=== PATIENT | female | born 1960 | race Caucasian/White ===

== ENCOUNTER 2022-01-14 09:38 | Outpatient (CLI) | payer OTHER, SELFPAY ==
--- NOTE | 2022-01-14 09:45 | CRLHL7_ITS ---
For Patients: As a result of the Century Cures Act, medical imaging exams and procedure reports are released immediately into your electronic medical record. You may view this report before your referring provider. If you have questions, please contact your health care provider. INDICATION: FOLLOW UP THYROID NODULE, S/P RIGHT THYROIDECTOMY COMPARISON: 06/07/2019 TECHNIQUE: Mora scale and color Doppler images were acquired of the thyroid gland. FINDINGS: Right thyroidectomy. Left thyroid lobe diffusely heterogeneous, as before. The left thyroid lobe measures 4.4 x 1.2 x 1.4 cm in size. Stable size and morphology of the nodule within the lower pole of the left thyroid lobe with circumscribed margins and slightly hypoechoic internal echotexture and increased through transmission measuring 1.9 x 1.3 x 1.2 cm, previously measuring 2.1 x 1.5 x 1.3 cm. The color Doppler images demonstrate normal vascularity. There is no evidence of cervical lymphadenopathy or parathyroid mass. IMPRESSION: Similar morphology and size of the nodule within the lower pole of the left thyroid lobe measuring 1.9 cm. Dictated by Joe Escobedo MD @ 01/14/2022 10:17:34 AM (Electronically Signed)
== END 2022-01-14 09:39 | disposition home or self-care (01) ==
LOC: US 09:40
PROVIDERS: PCP Family Medicine; Visit Provider Internal Medicine Hematology & Oncology
DX: E04.1 Nontoxic single thyroid nodule (principal)
CPT/HCPCS: 76536

== ENCOUNTER 2022-01-31 08:58 | Outpatient (CLI) | payer OTHER, SELFPAY ==
[2022-01-31 22:12] LABS: Chloride* 99 mmol/L (96-114)
[2022-01-31 22:13] LABS: Albumin* 4.7 g/dL (3.3-5.0); Sodium* 135 mmol/L (135-149)
[2022-01-31 22:14] LABS: Potassium* 4.4 mmol/L (3.6-5.1)
[2022-01-31 22:16] LABS: Alkaline Phosphatase* 83 U/L (40-150); Aspartate Amino Transferase* 31 U/L (12-35); Bilirubin Total* 0.9 mg/dL (0.1-1.5); Blood Urea Nitrogen* 13 mg/dL (7-30); Carbon Dioxide* 29 mmol/L (20-32); Cholesterol* 213 mg/dL (90-199); Creatinine* 0.7 mg/dL (0.5-1.5); Estimated Glomerular Filt Rate 98 ml/min; Glucose* 86 mg/dL (60-115); Total Protein* 7.3 g/dL (6.0-8.3)
[2022-01-31 22:17] LABS: Alanine Aminotransferase* 20 U/L (4-35); Calcium* 9.9 mg/dL (8.4-10.6); HDL Cholesterol* 98 mg/dL (>=50); LDL Cholesterol Calculated 104 mg/dL (<100); Triglycerides* 54 mg/dL (40-149)
[2022-01-31 23:59] LABS: Vitamin D 25 Hydroxy* 53 ng/mL (30-80)
== END 2022-01-31 08:59 | disposition home or self-care (01) ==
PROVIDERS: PCP Family Medicine; Visit Provider Family Medicine
DX: E03.9 Hypothyroidism, unspecified (principal); E55.9 Vitamin D deficiency, unspecified; Z13.6 Encounter for screening for cardiovascular disorders
CPT/HCPCS: 80053; 80061; 82306; 84443

== ENCOUNTER 2022-03-14 12:31 | Outpatient (CLI) | payer OTHER, SELFPAY ==
--- NOTE | 2022-03-14 14:52 | W.ANESCHARGE ---
Anesthesia Charges Start Date/Time Anesthesia Start Date: 03/14/22 Anesthesia Start Time: 14:05 Stop Date/Time Anesthesia Stop Date: 03/14/22 Anesthesia Stop Time: 14:47 Summary Emergency: No
--- NOTE | 2022-03-14 15:01 | W.ANESCHARGE ---
Anesthesia Charges Start Date/Time Anesthesia Start Date: 03/14/22 Anesthesia Start Time: 14:05 Stop Date/Time Anesthesia Stop Date: 03/14/22 Anesthesia Stop Time: 14:47 Summary Emergency: No
== END 2022-03-14 12:32 | disposition home or self-care (01) ==
LOC: OP CLINIC 12:32
PROVIDERS: PCP Family Medicine; Visit Provider Surgery
DX: Z12.11 Encounter for screening for malignant neoplasm of colon (principal); K63.5 Polyp of colon; Z86.010 Personal history of colon polyps
CPT/HCPCS: 00811; 45380; 45385; 88305; J2704

== ENCOUNTER 2022-04-01 07:34 | Day surgery (SDC) | payer OTHER, SELFPAY ==
[2022-04-01] VITALS (15 sets, daily range): BP systolic 96–153; BP diastolic 63–104; PULSE 62–84; RESP 14–16; TEMP 36.2–36.4; O2SAT 96–100; BMI 21.4
--- NOTE | 2022-04-01 07:46 | SUR.PREOP ---
HOME COVID TEST NEGATIVE ON 03/31/22 @ 1535.
[2022-04-01] MEDS: LACTATED RINGERS 1000 ML 1,000 ML 100 ML IV (08:00)
[2022-04-01] MEDS: SCOPOLAMINE 1 MG/3 DAY PATCH 1 PATCH TRANSDERMA (08:05)
[2022-04-01] MEDS: SODIUM CHLORIDE 0.9 % (FLUSH) 10 ML SYRINGE IVF (08:17)
[2022-04-01] MEDS: ERTAPENEM 1 GM inj IVPB (08:45)
--- NOTE | 2022-04-01 09:09 | W.ANESCHARGE ---
Anesthesia Charges Start Date/Time Anesthesia Start Date: 04/01/22 Anesthesia Start Time: 08:33 Stop Date/Time Anesthesia Stop Date: 04/01/22 Anesthesia Stop Time: 10:48 Summary Emergency: No
--- NOTE | 2022-04-01 09:55 | SUR.OPER ---
Prior to prepping skin, red rash was found bilateral obliques and under breasts. FISH ICER and surgeon were notified of rash.
--- NOTE | 2022-04-01 10:39 | P.GSOP_ITS ---
Operative Note Date of procedure: 04/01/22 Type of Procedure: 1. Laparoscopic appendectomy and partial cecectomy. Procedure Description: After discussing the risks and benefits of the procedure, the patient signed informed consent.? The operative site was marked and the patient was brought to the operating room and placed on the operating table in supine position.? Care was taken to pad the patient's pressure points.?? The patient was then intubated by anesthesia.?? The operative site was then prepped and draped in the usual sterile fashion.? A time-out was then performed. A 5-mm laparoscopy port was placed in the left upper quadrant guided by a 5-mm laparoscope placed into a translucent trochar. Passage through the layers of the abdominal wall was visualized with the laparoscope. A pneumoperitoneum was established. A 30-degree 5-mm laparoscope was advanced into the abdomen. The abdomen was briefly surveyed, and there was no evidence of adhesions. A 12-mm port and a 5-mm port were placed in the left low quadrant and suprapubically, re spectively, under direct visualization by laparoscope. Left upper quadrant entrance port was then examined intraabdominally by placing the camera through the left lower quadrant port and no intraabdominal injury was seen. The patient was placed in Trendelenburg position, allowing the abdominal contents to shift cephalad. The small bowel was moved toward the midline in the abdomen and this allowed for identification of the appendix. The appendix was dissected from the lateral peritoneum using Harmonic scalpel. The cecum was grasped and retracted medially. The cecum was also mobilized off the lateral abdominal wall with the Harmonic scalpel. The terminal ileum was identified and entrance into the cecum was clearly visualized. This was away from the appendiceal entrance. Appendiceal mesentery was skeletonized with Harmonic scalpel. The appendiceal artery was clipped with 2 5 mm clips on the patient's side and divided with Harmonic scalpel on the specimen side. When the cecum was floppy and mobile, the appendix and the cuff of cecum was stapled with 2 vascular load staplers. When the first staple load was fired, the staple line was cut at the proximal stapler prior to the Stapler knife cutting in between the staple line. This was unusual. The staple line was examined and the ernesto were intact. The staple line was also intact. The second stapler was then fired without any difficulties. A small dog ear was noted at the end of the second staple line. even though the ernesto were intact, I elected to clip this with two 5 mm Endoclips. The appendix and cuff of the cecum were then placed into an Endo-Catch bag and removed through the 12 mm port. This was sent to pathology for gross examination. Pathologist was able to identify the polyp and there was a rim of normal tissue around the polyp. No bleeding was seen at surgical site. The staple line was examined and was intact. I elected to over-sew the first part of the staple line where there was premature cut between the staple line as described above. This was done with 3-0 silk Lembert sutures with extracorporeal knot tying. The 12-mm port was withdrawn and the fascial defect was closed with 0-0 Vicryl stitch using Yves Lynne needle under direct visualization. The 5-mm port was removed under direct visualization. The left upper quadrant port was used to evacuate the pneumoperitoneum and then withdrawn. The skin incisions were closed with 4-0 monocryl. Steri-Strips were applied over the incisions. All counts were correct at the end of the case. The patient tolerated this procedure well and was transferred to PACU in stable condition.? Findings: The appendix and a cuff of cecum was excised with ernesto. Unusual cutting of the first staple load was noted. The staple line was intact but this was oversewn with silk sutures Laparoscopically. Pathology was able to identify the appendiceal orifice polyp and a rim of normal tissue around the polyp. Anesthesia: GETA Surgeon: Herminio Hawkins MD Estimated blood loss (mL): 5 Condition: stable Disposition: PACU
[2022-04-01] MEDS: BUPIVACAINE 0.25% 30 ML INJECTION (10:45)
--- NOTE | 2022-04-01 11:16 | W.ANESCHARGE ---
Anesthesia Charges Start Date/Time Anesthesia Start Date: 04/01/22 Anesthesia Start Time: 08:33 Stop Date/Time Anesthesia Stop Date: 04/01/22 Anesthesia Stop Time: 10:48 Summary Emergency: No
[2022-04-01] MEDS: HYDROCODONE-ACETAMIN 5-325 MG 1 TAB PO ×2 (11:44→12:49)
== END 2022-04-01 13:05 | disposition home or self-care (01) ==
PROVIDERS: PCP Family Medicine; Visit Provider Surgery
PROC: 0DTH4ZZ Resection of Cecum, Percutaneous Endoscopic Approach (ICD-10-PCS; CPT 44204; principal; 2022-04-01 08:45)
DX: D12.1 Benign neoplasm of appendix (principal); D12.2 Benign neoplasm of ascending colon
CPT/HCPCS: 44970; 44238; 00840; 88304; 88307; A9270; J1100; J1335; J2250; J2405; J2704; J3010; J3490; J7120

== ENCOUNTER 2022-06-21 12:46 | Outpatient (CLI) | payer BC, SELFPAY ==
--- NOTE | 2022-06-21 13:00 | CRLHL7_ITS ---
For Patients: As a result of the Century Cures Act, medical imaging exams and procedure reports are released immediately into your electronic medical record. You may view this report before your referring provider. If you have questions, please contact your health care provider. DXA BONE MINERAL DENSITY STUDY Current height (in): 61.0. Weight (lb): 140.0. Menopause age: Not provided. Ethnicity: White. Reason for exam: Osteopenia. 1. Have you had a previous hip or vertebral fracture? No. 2. Have you had any fractures during your adult life which did not result from significant trauma (e.g., auto accident)? Yes. 3. Did either of your parents have a hip fracture? No. 4. Do you smoke? No. 5. Have you ever taken Glucocorticoids? No. 6. Do you have rheumatoid arthritis? No. 7. Do you have secondary osteoporosis? No. 8. Do you drink 3 or more alcoholic drinks per day? Yes. 9. Are you being treated for osteoporosis? No. 10. Have you ever taken any of the following medications: Actonel, Evista, Fosamax, Miacalcin, Reclast, Boniva, Forteo, HRT (i.e. estrogen/hormone therapy), Protelos, Prolia, Vitamin D, Calcium, other ??? please specify. ANSWER: Yes, calcium, vitamin D. 11. Do you have any of the following medical conditions: Anorexia or bulimia, asthma or emphysema, end stage renal disease, hyperparathyroidism, any seizure disorders, cancer, inflammatory bowel diseases, hysterectomy, other ??? please specify. ANSWER: Yes, asthma or emphysema. 12. What was your maximum height (inches)? 66.5. 13. Do you perform weight bearing exercise regularly? No. 14. Do you regularly consume dairy products? No. 15. Do you drink caffeinated beverages? No. 16. At what age did your period start? 12. 17. Are you premenopausal? No. 18. How many full term pregnancies have you had? 2. 19. Have you ever missed your period for more than 6 months in a row (not including or menopause)? No. TECHNIQUE: Bone mineral density study was performed using the SmartSynch. FINDINGS: The results of the study expressed as bone mineral density (BMD) are as follows: Lumbar spine L1 to L4: BMD: 0.889 g/cm2. T-score: -1.4. Z-score: 0.2. Neck Left: BMD: 0.718 g/cm2. T-score: -1.2. Z-score: 0.2. Right: BMD: 0.676 g/cm2. T-score: -1.6. Z-score: -0.1. Total Left: BMD: 0.941 g/cm2. T-score: -0.0. Z-score: 1.1. Right: BMD: 0.823 g/cm2. T-score: -1.0. Z-score: 0.1. IMPRESSION: Osteopenia. *Comparison exams done prior to 09/2019 were performed on different unit, Six3. COMPARISON: Compared with scan of 01/10/2021, the bone mineral density has increased decreased by 0.3 percent at the spine and increased by 1.8 percent at the hip. Compared with scan of 06/18/2018, the bone mineral density has increased by 9.2 percent at the spine and increased by 7.4 percent at the hip. FRAX 10-year Fracture Risk Major Osteoporotic Fracture: 17 percent Hip Fracture: 2.2 percent Reported Risk Factors: [place] () Neck BMD = 0.676, BMI = 26.5 Coral Gonzalez M.D. Diagnostic/Breast Radiologist [email or web address] Transcribed: 2:56 pm DW/Dictated by: Coral Gonzalez MD @ 06/21/2022 1:51:00 PM (Electronically Signed)
== END 2022-06-21 12:47 | disposition home or self-care (01) ==
LOC: RAD 12:46
PROVIDERS: PCP Family Medicine; Visit Provider Internal Medicine Hematology & Oncology
DX: Z13.820 Encounter for screening for osteoporosis (principal); M85.89 Other specified disorders of bone density and structure, multiple sites
CPT/HCPCS: 77080

== ENCOUNTER 2023-02-12 11:27 | Outpatient (CLI) | payer BC, SELFPAY | END 2023-02-12 11:28 | disposition home or self-care (01) | LOC: NFLDREF 02-15 18:29 | PROVIDERS: PCP Family Medicine; Referring Provider Family Medicine; Visit Provider Family Medicine | DX: Z00.00 Encounter for general adult medical examination without abnormal findings (principal); M85.80 Other specified disorders of bone density and structure, unspecified site; E03.9 Hypothyroidism, unspecified; E55.9 Vitamin D deficiency, unspecified; D12.2 Benign neoplasm of ascending colon; C50.919 Malignant neoplasm of unspecified site of unspecified female breast; Z13.6 Encounter for screening for cardiovascular disorders; Z13.220 Encounter for screening for lipoid disorders; Z15.02 Genetic susceptibility to malignant neoplasm of ovary | CPT/HCPCS: 80053; 80061; 82306; 84443 ==

== ENCOUNTER 2023-03-18 07:07 | Outpatient (CLI) | payer BC, SELFPAY ==
--- OUTSIDE RECORDS SUMMARY | 2023-03-18 07:10 | XMS_ITS | Continuity of Care Document ---
Author Name Unknown Organization [facility] Address [address] [place] [address] Phone Care Team Providers Care Head Of Talent Management Name Role Phone Ariela English MD Unavailable Unavailable Allergies, Adverse Reactions, Alerts Substance Reaction Status Criticality No Known Allergies Active No Inform ation Medications Medication Instructions Dosage Effective Dates (start - stop) Status Comments IMODIUM A-D (unknown strength) take 1 Tablet by oral route every day as needed Not Available - Active ALBUTEROL SULFATE HFA (unknown strength) as needed Not Available - Active ibuprofen 200 mg tablet as needed - Active FISH OIL (unknown strength) 1400mg daily Not Available - Active magnesium 200 mg tablet take 2 Tablet by Oral route every day 2 Tablet - Active citalopram 10 mg tablet take 1 tablet by oral route every day 10 MG - Active anastrozole 1 mg tablet take 1 tablet by oral route every day 1 MG - Active Synthroid 100 mcg tablet take 1 tablet by oral route 6 days weekly - Active Procedures Procedure Date Office/Outpatient Visit, [facility] Advance Directives Directive Yes / No Effective Date File Name No Information Encounters Encounter Description Practice Location Reason(s) For Visit Diagnoses Date Provider Providers Copied on Encounter [facility], [address], [place], [address], [place] tel:[phone] [facility] No Information Dec- 0 Amador Titus. [address], [place], [address], [place]. tel:[phone] Office/Outpa tient Visit, [facility], [address], [place], [address], [place] tel:[phone] [facility] , hand pain (chief complaint) Pain in unspecified hand 0 José Luis Alvarado. [facility] [address], [place], [address], [place]. tel:[phone] Referring Provider: Christiano Lopez, [facility] [address], [place], [address]. tel:[phone] Family History Family Member Type Diagnosis Age At Onset Problem (finding) No family hist ory of Systemic lupus erythematosus Payers Payer name Insurance type Covered libertarian ID Authorriria quegeraldine(s) [id number] Social History Type Description Quantity Date Captured Comments Alcohol Use Details Unknown Caffeine Use Details Unknown Tobacco Use Status No Information Smoking Status No Information Sex Female Chief Complaint And Reason For Visit No Information Reason For Referral Reason For Referral No Information History Of Present Illness Encounter Date Complaint History Of Prese nt Illness hand pain Functional Status Date Functional Assessmen t No Information Instructions Date Instruction Additional Infor mation No Information Assessments Type Assessment Date No Information Patient Care Teams Name Effective Dates (start - stop) Status Members No Information
--- NOTE | 2023-03-18 08:28 | W.ANESCHARGE ---
Anesthesia Charges Start Date/Time Anesthesia Start Date: 03/18/23 Anesthesia Start Time: 07:45 Stop Date/Time Anesthesia Stop Date: 03/18/23 Anesthesia Stop Time: 08:25
--- NOTE | 2023-03-18 11:42 | W.ANESCHARGE ---
Anesthesia Charges Start Date/Time Anesthesia Start Date: 03/18/23 Anesthesia Start Time: 07:45 Stop Date/Time Anesthesia Stop Date: 03/18/23 Anesthesia Stop Time: 08:25
== END 2023-03-18 07:08 | disposition home or self-care (01) ==
LOC: OP CLINIC 07:08
PROVIDERS: PCP Family Medicine; Visit Provider Surgery
DX: K62.1 Rectal polyp (principal); K63.89 Other specified diseases of intestine; Z86.010 Personal history of colon polyps; Z98.890 Other specified postprocedural states
CPT/HCPCS: 00811; 45385; 88305; J2704

== ENCOUNTER 2023-08-13 13:24 | Outpatient (CLI) | payer BC, SELFPAY ==
--- OUTSIDE RECORDS SUMMARY | 2023-08-13 13:27 | XMS_ITS | Continuity of Care Document ---
Author Name Unknown Organization [facility] Address [address] [place] [address] Phone Care Team Providers Care Pole Frame Construction Worker Name Role Phone Ariela English MD Unavailable Unavailable Allergies, Adverse Reactions, Alerts Substance Reaction Status Criticality No Known Allergies Active No Inform ation Medications Medication Instructions Dosage Effective Dates (start - stop) Status Comments Synthroid 100 mcg tablet take 1 tablet by oral route 6 days weekly - Active anastrozole 1 mg tablet take 1 tablet by oral route every day 1 MG - Active citalopram 10 mg tablet take 1 tablet by oral route every day 10 MG - Active magnesium 200 mg tablet take 2 Tablet by Oral route every day 2 Tablet - Active FISH OIL (unknown strength) 1400mg daily Not Available - Active ibuprofen 200 mg tablet as needed - Active ALBUTEROL SULFATE HFA (unknown strength) as needed Not Available - Active IMODIUM A-D (unknown strength) take 1 Tablet by oral route every day as needed Not Available - Active Procedures Procedure Date Office/Outpatient Visit, [facility] Advance Directives Directive Yes / No Effective Date File Name No Information Encounters Encounter Description Practice Location Reason(s) For Visit Diagnoses Date Provider Providers Copied on Encounter [facility], [address], [place], [address], [place] tel:[phone] [facility] [place] No Information Dec- 0 Amador Titus. [address], [place], [address], [place]. tel:[phone] Office/Outpa tient Visit, [facility], [address], [place], [address], [place] tel:[phone] [facility] , hand pain (chief complaint) Pain in unspecified hand 0 José Luis Alvarado. [facility] [address], [place], [address], [place]. tel:[phone] Referring Provider: Christiano Lopez, [facility] [address], [place], [address]. tel:[phone] Family History Family Member Type Diagnosis Age At Onset Problem (finding) No family hist ory of Systemic lupus erythematosus Payers Payer name Insurance type Covered democrat ID Authorriria quegeraldine(s) [id number] Social History Type Description Quantity Date Captured [...]
--- OUTSIDE RECORDS SUMMARY | 2023-08-13 13:27 | XMS_ITS | Clinical Summary ---
Author Name Unknown Organization [facility] Address [place], [place] [address] Care Team Providers Care Used Car Renovator Name Role Phone Nurys Salinas MD Primary Care Provider + Kassandra Greco MD Unavailable Unavailable Karen Hurst RN, BSN Unavailable [phone] Allergies Active Allergy Reactions Criticality Noted Date Comments Rolapitant Itching,Dizziness 06/26/2017 A chemotherapy agent. Medications Medication Sig Dispensed Refills Start Date End Date Status citalopram (CELEXA) 10 mg tablet Take 10 mg by mouth at bedtime. 06/19/2017 Active levothyroxine (SYNTHROID) 100 mcg tablet Take 1 tablet by mouth before breakfast. 0 07/02/2017 Active CALCIUM CARBONATE/VITAMIN D2 (XXOFYBZ-108-U ORAL) Take 1 tablet by mouth once daily. Active fish oil-omega-3 fatty acids (FISH OIL) 1,200-360 mg cap Take 1 capsule by mouth once daily. One capsule is 1200 mg-360 mg Active albuterol HFA (PROAIR HFA) 90 mcg/actuation inhaler Inhale 2 Puffs by mouth 4 times daily if needed. Active cholecalciferol (VITAMIN D3) 1,000 unit capsule Take 1,000 Units by mouth once daily. Active anastrozole (ARIMIDEX) 1 mg tablet 04/11/2018 Active Active Problems Problem Noted Date Diagnosed Date Hyperopic astigmatism of right eye 06/22/2019 Malignant neoplasm of centra l portion of left breast in female, estrogen receptor positive 06/26/2017 Cancer Staging:Pathologic stage from 08/21/2017:No Stage Recommended(ypT2, pN1a, cM0, G2, ER: Positive, HI: Positive, HER2: Equivocal) - Signed by Kassandra Greco MD on 08/21/2017 Carcinoma of left breast metastatic to axillary lymph node 02/03/2017 Benign neoplasm of breast 11/14/2006 Overview: many cysts-- both breasts Rosacea 04/01/2006 Depressive disorder, not elsewhere classified Anxiety state, unspecified 04/01/2006 Overview: some anxiety attacks Regular astigmatism of left eye 11/28/2005 Presbyopia 11/28/2005 BLEPHARITIS - NOS 08/20/2004 OSTEOPENIA 12/03/2002 Overview: 2006- last scan 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 HYPOTHYROIDISM NOS DISORDER, TOBACCO USE MALAISE AND FATIGUE Immunizations Name Administration Dates Next Due COVID-19 vaccine (Moderna 50 mcg/0.5mL) 12YO+ BIVALENT BRAYAN PONCE 02/26/2022 Hepatitis A (Adult) 07/01/2007,11/26/2006 Hepatitis B (Peds) 02/23/2002,09/25/2001, 002 Tdap 11/26/2006 Family History Medical History Relation Name Comments Cancer-prostate Brother dx 2017 Psychiatric illness Daughter Brain cancer Father Cancer Father lung cancer- 2 types, prostate cancer, skin cancer, polycythemia vera Other Father cancer- Lung, p rostate Cancer-breast Maternal Aunt 78 metas tatic disease Other Maternal Grandmother Lung ca ncer Lung cancer Mother treated with garza rgery only Psychiatric illness Mother ?anxiety /panic Cancer-colon Paternal Uncle colon ca ncer in fifties Hypertension Son Goyo Cancer-ovarian No Family History Cancer-pancreatic No Family History Melanoma No Family History Relation Name Status Comments Brother Daughter Alive Father (Age 71) Maternal Aunt Maternal Grandfather Maternal Grandmother Mother Alive Paternal Grandfather Paternal Grandmother Paternal Uncle Son Goyo Alive Social History Tobacco Use Types Packs/Day Years Used Date Smoking Tobacco: Former Cigarettes 0.3 25 0 06/12/1987 - 06/12/2012 Smokeless Tobacco: Never Alcohol Use Standard Drinks/Week Comments Yes 0 (1 standard drink = 0.6 oz pur e alcohol) 3-4 beers per night Sex and Gender Information Value Date Recorded Sex Assigned at Not on file Gender Identity Not on file Sexual Orientation Not on file Obstetrics History Para Term AB IAB SAB Ectopic Multiple Livin g Live Births 2 2 2 0 0 0 0 0 2 Date Outcome GA Total Labor Labor/2nd/3rd Weight Sex Delivery Anes PTL Lili A1 A5 Name Cl in Term Term Last Filed Vital Signs Vital Sign Reading Time Taken Comments Blood Pressure 125/94 04/24/2018 1:00 PM TEACHER PHYSICALLY IMPAIRED Pulse 96 04/24/2018 1:00 PM TEACHER PHYSICALLY IMPAIRED Temperature 36.6 ??C (97.8 ??F) 04/24/2018 1:00 PM CS T Respiratory Rate 16 04/24/2018 1:00 PM TEACHER PHYSICALLY IMPAIRED Oxygen Saturation 100% 08/05/2017 8:00 AM CDT Inhaled Oxygen Concentration - - Weight 62.1 kg (137 lb) 08/02/2020 3:32 PM CDT Height 168.9 cm (5' 6.5) 08/02/2020 3:32 PM CDT Body Mass Index 21.78 08/02/2020 3:32 PM CDT Plan of Treatment Health Maintenance Due Date Last Done Comments Depression screening for age 12+ 1971 HIV for age 15-65 1974 Hepatitis C screening for age 18-79 1977 Colonoscopy through age 75 2004 Mammogram for age 45-75 11/05/2007 11/05/19 07, 10/21/2005, 10/21/2005, Additional history exists Zoster (shingles) series for age 50+ (1 of 2) 2009 Lipids for age 45-75 11/19/2010 11/19/2005, 11/11/2002, 11/11/2002 Tetanus booster 11/26/2016 11/26/2006 BMI (ht and wt on same day) for age 18+ 04/14/2019 04/14/2018, 12/31/2017, 09/09/2017, Additional history exists COVID-19 vaccine series (2022- season) 2022 02/26/2022, 05/22/2021, 08/11/2020, Additional history exists Influenza for age 50-64 12/28/2023 Pap test for age 21-65 02/06/2025 , 02/06/2022, 07/09/2016, Additional history exists Tdap Completed 11/26/2006 Pneumococcal series for age 6-64 Aged Out No longer eligible based on patient's age to complete this topic Medical Devices Implanted Type Area Barber Device Identifier Shelf Expiration Date Model / Serial / Lot Port Low Profile Slim W/6fr 1 Lmn Powerport - [id number] Implanted:Qty: 1 on 02/19/2017 by Kassandra Greco MD at [facility] Right: Chest [employer] 11/25/2017 [id number] / / [id number] adeline Breast 300cc Natrelle Tab Mod Extra Prjctn Saline Implanted:Qty: 1 on 08/04/2017 by Vimal Lara MD at [facility] Explanted:at [facility] (Quantity not on file) Right: Breast [employer] - Inamed 133MX-11-T # / [id number] / [id number] adeline Breast 300cc Natrelle Tab Mod Extra Prjctn Saline Implanted:Qty: 1 on 08/04/2017 by Vimal Lara MD at [facility] Explanted:at [facility] (Quantity not on file) Left: Breast [employer] - Inamed 133MX-11-T # / [id number] / [id number] 7mesh [id number] Alloderm Select Thick Perforated Implanted:Qty: 1 on 08/04/2017 by Vimal Lara MD at [facility] Explanted:at [facility] (Quantity not on file) Right: Breast [employer]el[employer] Inc 06/26/2019 [id number] / / [id number] [id number] Alloderm Select Thick Perforated Implanted:Qty: 1 on 08/04/2017 by Vimal Lara MD at [facility] Explanted:at [facility] (Quantity not on file) Left: Breast [employer] Inc 06/26/2019 [id number]# / / [id number] Procedures Procedure Name Priority Date/Time Associated Diagnosis Comments [employer] THIN PREP PAP SCREEN IMAGED Routine 02/06/2022 1:45 PM CDT Encounter for screening for malignant neoplasm of cervix XR MAMMO BILAT DIAG FFDM (IA) Routine 11/04/2006 1:30 PM CDT Lump Or Mass In Breast LIPID PANEL Routine 11/19/2005 12:16 PM CDT Screening Lipid Disorders from Last 3 Months or Most Recently Relevant to Health Maintenance Results * [employer] THIN PREP PAP SCREEN IMAGED (02/06/2022 1:45 PM CDT) Case Report Gynecologic Cytology Report ? Case: [id number] ? Authorizing Provider: ??Nurys Salinas MD ??Collected: ? 02/06/2022 1345 ? Ordering Location: ? [facility] ?Received: ?02/08/2022 08 ? First Screen: ?Chaz Evans ? Specimen: ?[employer] ThinPrep Vial Screening, Cervical/Vaginal ? 02/27/2022 2:39 PM CDT [facility] INTERPRETATION/ RESULT NEGATIVE FOR INTRAEPITHELIAL LESION OR MALIGNANCY (NIL) (none) 02/27/2022 2:39 PM CDT [facility] IMEN ADEQUACY Satisfactory for evaluation Endocervical component present 02/27/2022 2:39 PM CDT [facility] HPV REQUEST HPV and PAP 02/27/2022 2:39 PM CDT [facility] Date of LMP 02/27/2022 2:39 PM CDT [facility] Comment:Unknown Last Pap Date 07/09/2016 02/27/2022 2:39 PM CDT [facility] Abnormal Pap or [place] Bx in last 5 years No 02/27/2022 2:39 PM CDT [facility] [place] Bx Done Today No 02/27/2022 2:39 PM CDT [facility] Additional Information 02/27/2022 2:39 PM CDT [facility] Comment: Interpreted at [facility] - [address], [place] [address] Automated Review Successful 02/27/2022 2:39 PM CDT [facility] Comment:Specimen processed s uccessfully by automated special education director device, ThinPrep Imaging System, [employer] ANCILLARY TESTING [employer] HPV Ordered, Please see separate report 02/27/2022 2:39 PM CDT [facility] Note The pap test is a screening technique, not a diagnostic procedure. It is used primarily to screen for squamous cancers and precursor lesions. Published studies have shown that it is subject to both false negative and false positive results. The pap test should not be used as the sole means to diagnose or exclude pre-malignant and malignant lesions. 02/27/2022 2:39 PM CDT [facility] Other (Cervical/Vagina l) 02/06/2022 1:45 PM CDT 02/08/2022 8:27 AM CDT Nurys Salinas MD PATHOLOGY/CYTOLO GY [facility] [address] [place] [address], [place] * XR MAMMO BILAT DIAG FFDM (11/04/2006 1:30 PM CDT) Anatomical Region Laterality Modality BREASTS, Breast Left, Breast Right Bilateral Mammography 11/04/2006 1:30 PM CDT Narrative 11/04/2006 3:32 PM CDT BILATERAL DIAGNOSTIC FULL FIELD DIGITAL MAMMOGRAM AND BILATERAL BREAST ULTRASOUND: INDICATION: ??Patient comes in for her diagnostic mammogram because of the palpable abnormality in the upper right breast. ??The subsequent diagnostic mammogram showed an asymmetric density in the upper outer left breast. ?? REPORT: ?? MAMMOGRAM: RIGHT BREAST: ??The palpable abnormality is marked and corresponds to an asymmetric density which will be further evaluated with ultrasound. ?? There was also an asymmetric density in the upper outer right breast which will be evaluated with ultrasound. ??There are benign calcifications throughout the breast. LEFT BREAST: ??Asymmetric densities upper outer left breast will be further evaluated with ultrasound. ??Benign calcifications throughout the breast. ??The breast is otherwise unremarkable. BILATERAL BREAST ULTRASOUND: ?? RIGHT BREAST: ??The palpable abnormality corresponds to a benign simple cyst measuring 2.6 cm x 3.3 cm x 1.7 cm. ??This is located at the 12 o'clock position 2 cm from the nipple. ??There are several smaller cysts in the upper and upper outer right breast measuring up to 2.4 cm at the 11 o'clock position 4 cm from the nipple and this corresponds to the mammographic density. ??No solid lesions demonstrated. LEFT BREAST: ??There are several benign simple cysts in the left breast measuring up to 4.7 cm x 1.0 cm and these correspond to the mammographic densities. No solid lesions are present. Findings discussed with the patient. Procedure Note Minal Meyer - 11/04/2006 BILATERAL DIAGNOSTIC FULL FIELD DIGITAL MAMMOGRAM AND BILATERAL BREASTULTRASOUND: INDICATION: Patient comes in for her diagnostic mammogram because of thepalpable abnormality in the upper right breast. The subsequent diagnosticmammogram showed an asymmetric density in the upper outer left breast. REPORT: MAMMOGRAM: RIGHT BREAST: The palpable abnormality is marked and corresponds to anasymmetric density which will be further evaluated with ultrasound. Therewas also an asymmetric density in the upper outer right breast which willbe evaluated with ultrasound. There are benign calcifications throughoutthe breast. LEFT BREAST: Asymmetric densities upper outer left breast will be furtherevaluated with ultrasound. Benign calcifications throughout the breast.The breast is otherwise unremarkable. BILATERAL BREAST ULTRASOUND: RIGHT BREAST: The palpable abnormality corresponds to a benign simplecyst measuring 2.6 cm x 3.3 cm x 1.7 cm. This is located at the 12o'clock position 2 cm from the nipple. There are several smaller cysts inthe upper and upper outer right breast measuring up to 2.4 cm at the 11o'clock position 4 cm from the nipple and this corresponds to themammographic density. No solid lesions demonstrated. LEFT BREAST: There are several benign simple cysts in the left breastmeasuring up to 4.7 cm x 1.0 cm and these correspond to the mammographicdensities. No solid lesions are present. Findings discussed with the patient. Valeria Michaels MD MAMMO * LIPID PANEL (11/19/2005 12:16 PM CDT) CHOLESTEROL,TOTAL 168 110 - 199 mg/dL [facility] TRIGLYCERIDES 89 40 - 149 mg/dL [facility] HDL CHOLESTEROL 60 >40 mg/dL [facility] CHOL/HDL RATIO 2.80 <4.51 [facility] LDL CHOLESTEROL 90 <131 mg/dL [facility] PATIENT STATUS Fasting [facility] Blood specimen (specimen) BLOOD SPECIMEN / Unknown 11/19/2005 12:16 PM CDT 11/19/2005 12:15 PM CDT Trupti Gamino MD CHEMISTRY [facility] INTERNAL ZIP [phone] [address] from Last 3 Months or Most Recently Relevant to Health Maintenance Advance Directives * Full Code (Latest Code Status on File) Date Activated Date Inactivated Comments 08/04/2017 7:21 PM 08/05/2017 3:17 PM * Full Code Date Activated Date Inactivated Comments 08/04/2017 11:12 AM 08/04/2017 12:47 PM * Full Code Date Activated Date Inactivated Comments 08/04/2017 11:12 AM 08/04/2017 11:12 AM Care Teams Used Car Renovator Relationship Specialty Start Date End Date Nurys Salinas MD [address] [place] [address] PCP - General Family Practice 01/21/17 Kassandra Greco MD [address] [place] [address] Surgery - General 01/27/17 Karen Hurst, RN, BSN [address] [phone] Cancer Rehab Care Coordination - [facility] Electronics Maintenance Technician 09/16/17
== END 2023-08-13 13:25 | disposition home or self-care (01) ==
LOC: NFLDREF 13:25
PROVIDERS: PCP Family Medicine; Visit Provider Family Medicine
DX: E03.9 Hypothyroidism, unspecified (principal)
CPT/HCPCS: 84443

== ENCOUNTER 2024-02-12 08:05 | Outpatient (CLI) | payer BC, SELFPAY ==
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
--- OUTSIDE RECORDS SUMMARY | 2024-02-15 04:20 | XMS_ITS | Continuity of Care Document ---
Author Organization [facility] Address [address] [place] [address] Phone Care Team Providers Care Automatic Fabric Cutter Name Role Phone Ariela English MD Unavailable [...] - Active Procedures Procedure Date Office/Outpatient Visit, [facility] Advance Directives Directive Yes / No Effective Date File Name No Information Encounters Encounter Description Practice Location Reason(s) For Visit Diagnoses Date Provider Providers Copied on Encounter [facility], [address], [place], [address], [place] tel:[phone] [facility] No Information Dec- 0 Amador Titus. [address], [place], [address], [place]. tel:[phone] Office/Outpa tient Visit, New [facility], [address], [place], [address], [place] tel:[phone] [facility] , hand pain (chief complaint) Pain in unspecified hand 0 José Luis Alvarado. [facility] [address], [place], [address], [place]. tel:[phone] Referring Provider: Christiano Lopez, [facility] [address] [facility] [address], [place], [address]. tel:[phone] Family History Family Member Type Diagnosis Age At Onset Problem (finding) No family hist ory of Systemic lupus erythematosus Payers Payer name Insurance type Covered libertarian ID Authorriria lay[facility]s) [id number] Social History Type Description Quantity Date Captured [...]
== END 2024-02-12 08:06 | disposition home or self-care (01) ==
LOC: NFLDREF 02-15 04:18
PROVIDERS: PCP Family Medicine; Referring Provider Family Medicine; Visit Provider Family Medicine
DX: E55.9 Vitamin D deficiency, unspecified (principal); R79.89 Other specified abnormal findings of blood chemistry; M85.80 Other specified disorders of bone density and structure, unspecified site; E03.9 Hypothyroidism, unspecified; F32.A Depression, unspecified
CPT/HCPCS: 80053; 80061; 82306; 84443

== ENCOUNTER 2024-03-01 12:47 | Outpatient (CLI) | payer BC, SELFPAY ==
--- OUTSIDE RECORDS SUMMARY | 2024-03-01 12:49 | XMS_ITS | Continuity of Care Document ---
Author Organization [facility] Address [address] [place] [address] Phone Care Team Providers Care Dedenter Name Role Phone Ariela English MD Unavailable [...] - Active Procedures Procedure Date Office/Outpatient Visit, [facility] Advance Directives Directive Yes / No Effective Date File Name No Information Encounters Encounter Description Practice Location Reason(s) For Visit Diagnoses Date Provider Providers Copied on Encounter [facility], [address], [place], [address], [place] tel:[phone] [facility] [place] No Information Dec- 0 Amador Titus. [address], [place], [address], [place]. tel:[phone] Office/Outpa tient Visit, New [facility], [address], [place], [address], [place] tel:[phone] [facility] , hand pain (chief complaint) Pain in unspecified hand 0 José Luis Alvarado. [facility] [address], [place], [address], [place]. tel:[phone] Referring Provider: Christiano Lopez, [facility] [address] [facility] [address], [place], [address]. tel:[phone] Family History Family Member Type Diagnosis Age At Onset Problem (finding) No family hist ory of Systemic lupus erythematosus Payers Payer name Insurance type Covered libertarian ID Authorriria lay(s) [facility] [id number] Social History Type Description Quantity Date Captured [...]
--- OUTSIDE RECORDS SUMMARY | 2024-03-01 12:49 | XMS_ITS | Clinical Summary ---
Author Organization [facility] Address [place], [place] [address] Care Team Providers Care Endocrinology Teacher Name Role Phone Nurys Salinas MD Primary Care Provider + Kassandra Greco MD Unavailable Unavailable Karen Hurst RN, BSN Unavailable [phone] Allergies Active Allergy Reactions Criticality Noted Date Comments Rolapitant Itching,Dizziness 06/26/2017 A chemotherapy agent. Medications Medication Sig Dispensed Refills Start Date End Date Status citalopram (CELEXA) 10 mg tablet Take 10 mg by mouth at bedtime. 06/19/2017 Active levothyroxine (SYNTHROID) 100 mcg tablet Take 1 tablet by mouth before breakfast. 0 07/02/2017 Active CALCIUM CARBONATE/VITAMIN D2 ([id number] ORAL) Take 1 tablet by mouth once [...] Stage Recommended(ypT2, pN1a, cM0, G2, ER: Positive, IN: Positive, HER2: Equivocal) - Signed by Kassandra [...] Comments Blood Pressure 125/94 04/24/2018 1:00 PM CELLAR PUMPER Pulse 96 04/24/2018 1:00 PM CELLAR PUMPER Temperature 36.6 ??C (97.8 ??F) 04/24/2018 1:00 PM CS T Respiratory Rate 16 04/24/2018 1:00 PM CELLAR PUMPER Oxygen Saturation 100% 08/05/2017 8:00 AM CDT [...] this topic Medical Devices Implanted Type Area Contract Lead Device Identifier Shelf Expiration Date Model / Serial / Lot Port Low Profile Slim W/6fr 1 Lmn [employer] - [id number] Implanted:Qty: 1 on 02/19/2017 by Kassandra Greco MD at [facility] Right: Chest [employer] 11/25/2017 [id number] / / [id number] adeline Breast 300cc Natrelle Tab Mod Extra Prjctn Saline Implanted:Qty: 1 on 08/04/2017 by Vimal Lara MD at [facility] Explanted:at [facility] (Quantity not on file) Right: Breast [employer] - Inamed 133MX-11-T # / [id number] / [id number] adeline Breast 300cc Natrelle Tab Mod Extra Prjctn Saline Implanted:Qty: 1 on 08/04/2017 by Vimal Lara MD at [facility] Explanted:at [facility] (Quantity not on file) Left: Breast [employer] - Inamed 133MX-11-T # / [id number] / [id number] Alloderm Select Thick Perforated Implanted:Qty: 1 on 08/04/2017 by Vimal Lara MD at [facility] Explanted:at [facility] (Quantity not on file) Right: Breast [employer] 06/26/2019 [id number]# / / [id number] Alloderm Select Thick Perforated Implanted:Qty: 1 on 08/04/2017 by Vimal Lara MD at [facility] Explanted:at [facility] (Quantity not on file) Left: Breast [employer] 06/26/2019 [id number] / / [id number] Procedures Procedure Name Priority Date/Time Associated Diagnosis Comments WEB UI DESIGNER THIN PREP PAP SCREEN IMAGED Routine 02/06/2022 1:45 PM CDT Encounter for screening for malignant neoplasm of cervix XR MAMMO BILAT DIAG FFDM (IA) Routine 11/04/2006 1:30 PM CDT Lump Or Mass In Breast LIPID PANEL Routine 11/19/2005 12:16 PM CDT Screening Lipid Disorders from Last 3 Months or Most Recently Relevant to Health Maintenance Results * WEB UI DESIGNER THIN PREP PAP SCREEN IMAGED (02/06/2022 1:45 PM CDT) Case Report Gynecologic Cytology Report ? Case: [id number] ? Authorizing Provider: ??Nurys Salinas MD ??Collected: ? 02/06/2022 1345 ? Ordering Location: ? [facility] ?Received: ?02/08/2022826 ? First Screen: ?Zaperez, Chaz ? Specimen: ?WEB UI DESIGNER ThinPrep Vial Screening, Cervical/Vaginal ? 02/27/2022 2:39 PM CDT [facility] INTERPRETATION/ RESULT NEGATIVE FOR INTRAEPITHELIAL LESION OR MALIGNANCY (NIL) (none) 02/27/2022 2:39 PM CDT [facility] IMEN ADEQUACY Satisfactory for evaluation Endocervical component present 02/27/2022 2:39 PM CDT [facility] HPV REQUEST HPV and PAP 02/27/2022 2:39 PM CDT [facility] Date of LMP 02/27/2022 2:39 PM CDT [facility] Comment:Unknown Last Pap Date 07/09/2016 02/27/2022 2:39 PM CDT [facility] Abnormal Pap or Orbisonia Bx in last 5 years No 02/27/2022 2:39 PM CDT [facility] Orbisonia Bx Done Today No 02/27/2022 2:39 PM CDT [facility] Additional Information 02/27/2022 2:39 PM CDT [facility] Comment: Interpreted at [facility] Central Laboratory - [address] [place] [address] [facility] [address], [place] [address] Automated Review Successful 02/27/2022 2:39 PM CDT [facility] Comment:Specimen processed s uccessfully by automated core mounter device, ThinPrep Imaging System, [employer] ANCILLARY TESTING WEB UI DESIGNER HPV Ordered, Please see separate report 02/27/2022 2:39 PM CDT [facility] Note The pap test is [...] and malignant lesions. 02/27/2022 2:39 PM CDT [facility] Other (Cervical/Vagina l) 02/06/2022 1:45 PM CDT 02/08/2022 8:27 AM CDT Nurys Salinas MD PATHOLOGY/CYTOLO GY [facility] [address] [place] [address], [place] * XR MAMMO BILAT DIAG FFDM [...] CDT) CHOLESTEROL,TOTAL 168 110 - 199 mg/dL [facility] TRIGLYCERIDES 89 40 - 149 mg/dL [facility] HDL CHOLESTEROL 60 >40 mg/dL [facility] CHOL/HDL RATIO 2.80 <4.51 [facility] LDL CHOLESTEROL 90 <131 mg/dL [facility] PATIENT STATUS Fasting [facility] Blood specimen (specimen) BLOOD SPECIMEN / Unknown 11/19/2005 12:16 PM CDT 11/19/2005 12:15 PM CDT Trupti Gamino MD CHEMISTRY [facility] INTERNAL ZIP [address] [address] from Last 3 Months or Most Recently Relevant to Health Maintenance Advance Directives * Full Code (Latest Code Status on File) Date Activated Date Inactivated Comments 08/04/2017 7:21 PM 08/05/2017 3:17 PM * Full Code Date Activated Date Inactivated Comments 08/04/2017 11:12 AM 08/04/2017 12:47 PM * Full Code Date Activated Date Inactivated Comments 08/04/2017 11:12 AM 08/04/2017 11:12 AM Care Teams Endocrinology Teacher Relationship Specialty Start Date End Date Nurys Salinas MD [address] [place] [address] PCP - General Family Practice 01/21/17 Kassandra Greco MD [address] [place] [address] Surgery - General 01/27/17 Karen Hurst, RN, BSN [address] [phone] Cancer Rehab Care Coordination - [facility] Otr Owner Operator 09/16/17
--- NOTE | 2024-03-01 13:00 | CRLHL7_ITS ---
For Patients: As a result of the Cures Act, medical imaging exams and procedure reports are released immediately into your electronic medical record. You may view this report before your referring provider. If you have questions, please contact your health care provider. INDICATION: Hypothyroidism. Status post right thyroidectomy. TECHNIQUE: Ultrasound thyroid with miller-scale and color Doppler analysis. COMPARISON: 01/14/2022. 06/07/2019. FINDINGS: Right lobe: Surgically absent. No discrete abnormality identified within the thyroidectomy bed. Left lobe: 6.2 x 0.9 x 1.4 cm. Nodules: Solid heterogeneous mildly hypoechoic nodule along the inferior aspect of the left thyroid lobe measures 2.0 x 0.8 x 1.0 cm, previously 1.9 x 1.3 x 1.2 cm in 2021 and 2.1 x 1.5 x 1.3 cm in 2019. The nodule is smoothly marginated, wider than tall and demonstrates coarse internal calcifications (TR 4). Echotexture of the thyroid parenchyma is diffusely heterogeneous. Color Doppler analysis demonstrates normal vascularity. The isthmus is normal. No evidence of lymphadenopathy or parathyroid mass. IMPRESSION: 1. Similar postoperative changes following right thyroidectomy. 2. Mild decrease in size of the TR 4 nodule within the inferior left thyroid lobe dating back to ultrasound from 2019. Maximal dimension on today`s examination is 2 cm. 3. Diffusely heterogeneous left thyroid lobe. Dictated by Bernadine Krause MD @ 03/02/2024 8:48:48 AM (Electronically Signed)
== END 2024-03-01 12:48 | disposition home or self-care (01) ==
LOC: US 12:47
PROVIDERS: PCP Family Medicine; Visit Provider Internal Medicine Hematology & Oncology
DX: E04.1 Nontoxic single thyroid nodule (principal); Z85.3 Personal history of malignant neoplasm of breast
CPT/HCPCS: 76536

== ENCOUNTER 2024-11-04 15:20 | Outpatient (CLI) | payer MEDICARE, SELFPAY ==
--- NOTE | 2024-11-04 15:30 | CRLHL7_ITS ---
For Patients: As a result of the Century Cures Act, medical imaging exams and procedure reports are released immediately into your electronic medical record. You may view this report before your referring provider. If you have questions, please contact your health care provider. DXA BONE MINERAL DENSITY STUDY Reason for exam: Osteopenia. Other specified disorders of bone density. Current height (in): 66.5. Weight (lb): 140. Menopause age: 53. Ethnicity: White. 1. Have you had a previous hip or vertebral fracture? No. 2. Have you had any fractures during your adult life which did not result from significant trauma (e.g., auto accident)? Yes. 3. Did either of your parents have a hip fracture? No. 4. Do you smoke? No. 5. Have you ever taken Glucocorticoids? No. 6. Do you have rheumatoid arthritis? No. 7. Do you have secondary osteoporosis? No. 8. Do you drink 3 or more alcoholic drinks per day? Yes. 9. Are you being treated for osteoporosis? No. 10. Have you ever taken any of the following medications: Actonel, Evista, Fosamax, Miacalcin, Reclast, Boniva, Forteo, HRT (i.e. estrogen/hormone therapy), Protelos, Prolia, Vitamin D, Calcium, other ??? please specify. ANSWER: Yes, vitamin D, calcium, and Atenolol. 11. Do you have any of the following medical conditions: Anorexia or bulimia, asthma or emphysema, end stage renal disease, hyperparathyroidism, any seizure disorders, cancer, inflammatory bowel diseases, hysterectomy, other ??? please specify. ANSWER: Yes, asthma or emphysema. 12. What was your maximum height (inches)? 66.5. 13. Do you perform weight bearing exercise regularly? No. 14. Do you regularly consume dairy products? No. 15. Do you drink caffeinated beverages? No. 16. At what age did your period start? 12. 17. Are you premenopausal? No. 18. How many full-term pregnancies have you had? 2. 19. Have you ever missed your period for more than 6 months in a row (not including or menopause)? No. TECHNIQUE: Bone mineral density study was performed using the [employer]. FINDINGS: The results of the study expressed as bone mineral density (BMD) are as follows: Lumbar spine L1 to L4: BMD: 0.901 g/cm2. T-score: -1.3. Z-score: 0.5. Neck Left: BMD: 0.704 g/cm2. T-score: -1.3. Z-score: 0.2. Right: BMD: 0.669 g/cm2. T-score: -1.6. Z-score: -0.1. Total Left: BMD: 0.991 g/cm2. T-score: 0.4. Z-score: 1.7. Right: BMD: 0.824 g/cm2. T-score: -1.0. Z-score: 0.3. IMPRESSION: Osteopenia. *Comparison exams done prior to 09/2019 were performed on different unit, surespot. COMPARISON: Compared with scan of 06/21/2022, the bone mineral density has increased by 1.4 percent at the spine and increased by 2.9 percent at the hip. Compared with scan of 01/10/2021, the bone mineral density has increased by 0.3 percent at the spine and increased by 1.8 percent at the hip. FRAX 10-year Fracture Risk Major Osteoporotic Fracture: 17 percent Hip Fracture: 2.7 percent Reported Risk Factors: [place] () Neck BMD=0.669, BMI=22.3, previous fracture, alcohol use Joe Escobedo M.D. Diagnostic Radiologist [email or web address] BRAYAN/parker canales/Dictated by: Joe Escobedo MD @ 11/05/2024 10:52:00 AM (Electronically Signed)
== END 2024-11-04 15:21 | disposition home or self-care (01) ==
LOC: RAD 15:21
PROVIDERS: PCP Family Medicine; Visit Provider Family Medicine
DX: M85.89 Other specified disorders of bone density and structure, multiple sites (principal)
CPT/HCPCS: 77080

== ENCOUNTER 2025-01-18 13:31 | Outpatient (CLI) | payer MEDICARE, SELFPAY | END 2025-01-18 13:32 | disposition home or self-care (01) | LOC: NFLDREF 01-21 14:10 | PROVIDERS: PCP Family Medicine; Referring Provider Family Medicine; Visit Provider Family Medicine | DX: Z01.818 Encounter for other preprocedural examination (principal) | CPT/HCPCS: 80048 ==

== ENCOUNTER 2025-03-07 14:52 | Outpatient (CLI) | payer MEDICARE, SELFPAY ==
--- NOTE | 2025-03-07 14:45 | CRLHL7_ITS ---
For Patients: As a result of the Cures Act, medical imaging exams and procedure reports are released immediately into your electronic medical record. You may view this report before your referring provider. If you have questions, please contact your health care provider. CLINICAL HISTORY: CLINICAL HISTORY:nodule Comparison 03/01/2024 TECHNIQUE: Mora-scale and color Doppler images were acquired of the thyroid gland. FINDINGS: The left lobe measures 6.1 x 1.2 x 1.3 in size. Left inferior 1.3 by 0.9 x 1.2 centimeter solid nodule in size previously measuring probably slightly decreased 2 x 0.8 x 1 centimeter. TR 4 Right thyroidectomy. IMPRESSION: Left thyroid nodule. ACR TI-RADS [email or web address] TR1: Benign No FNA TR2: Not Suspicious No FNA TR3: Mildly Suspicious FNA if greater than or equal to 2.5 cm Follow if greater than or equal to 1.5 cm TR4: Moderately Suspicious FNA if greater than or equal to 1.5 cm Follow if greater than or equal to 1 cm TR5: Highly Suspicious FNA if greater than or equal to 1 cm Follow if greater than or equal to 0.5 cm Dictated by Coral Gonzalez MD @ 03/08/2025 5:43:10 AM (Electronically Signed)
== END 2025-03-07 14:53 | disposition home or self-care (01) ==
LOC: US 14:52
PROVIDERS: PCP Family Medicine; Visit Provider Internal Medicine Hematology & Oncology
DX: E04.8 Other specified nontoxic goiter (principal); Z85.3 Personal history of malignant neoplasm of breast
CPT/HCPCS: 76536

== ENCOUNTER 2025-03-14 10:59 | Outpatient (CLI) | payer MEDICARE, SELFPAY | END 2025-03-14 11:00 | disposition home or self-care (01) | LOC: NFLDREF 03-17 19:52 | PROVIDERS: PCP Family Medicine; Referring Provider Family Medicine; Visit Provider Family Medicine | DX: E06.3 Autoimmune thyroiditis (principal); M85.89 Other specified disorders of bone density and structure, multiple sites; Z13.9 Encounter for screening, unspecified; E55.9 Vitamin D deficiency, unspecified | CPT/HCPCS: 80053; 80061; 82306; 84443 ==